=== PATIENT | male | born 1995 | race Two or more races ===

== ENCOUNTER 2020-08-21 19:51 | Emergency (ER) | payer MEDICAID, OTHER ==
[~2020-08-21] VITALS: Ht 170.2 cm; Wt 63.5 kg
[2020-08-21] MEDS ORDERED: PANTOPRAZOLE 40 MG/10 ML VIAL INJ IV ONE (20:15)
[2020-08-21] MEDS ORDERED: SODIUM CHLORIDE 0.9% 1,000 ML IV ONE (20:15)
[2020-08-21] MEDS ORDERED: cefTRIAXone 1GM/50ML D5W 50 ML IV ONE (20:30)
[2020-08-21 21:17] LABS: Basophils # (auto) 0 10 ^3/uL (0-0.2); Basophils % (auto) 0.3 % (0.0-2.0); Eosinophils # (auto) 0 10 ^3/uL (0-0.8); Eosinophils % (auto) 0.2 % (0.0-7.0); Hematocrit 47.2 % (41.0-53.0); Hemoglobin 16.1 g/dL (13.5-17.5); Lymphocytes # (auto) 1.1 10 ^3/uL (0.4-5.4); Lymphocytes % (auto) 7.2 % (10.0-50.0); Mean Corpuscular Hemoglobin 31.2 pg (28.0-32.0); Mean Corpuscular Hgb Conc. 34.2 g/dL (32.0-36.0); Mean Corpuscular Volume 91.2 fL (80.0-100.0); Monocytes # (auto) 0.9 10 ^3/uL (0-1.3); Neutrophils # (auto) 12.6 10 ^3/uL (1.6-8.6); Neutrophils % (auto) 86.3 % (37.0-80.0); Nucleated Red Blood Cells % 0.1 %; Platelet Count (auto) 242 10^3/uL (140-450); Red Blood Cells 5.17 10^6/uL (4.5-5.90); Red Cell Distribution Width 13.2 % (11.8-14.3); White Blood Cell 14.6 10^3/uL (4.4-10.8)
[2020-08-21 21:24] LABS: Albumin 3.9 g/dL (3.4-5.0); Calcium 8.2 mg/dL (8.5-10.1)
[2020-08-21 21:27] LABS: Lactic Acid w/Reflex 3.1 mmol/L (0.4-2.0)
[2020-08-21 21:28] LABS: Bilirubin, Total 0.4 mg/dL (0.2-1.0); Total Protein 7.8 g/dL (6.4-8.2)
[2020-08-21 21:48] LABS: INR 1.02 (0.9-1.15)
[2020-08-21 22:17] LABS: Salicylate < 1.7 mg/dL (2.8-20.0)
[2020-08-21 22:22] LABS: Acetaminophen < 2.0 ug/mL (10-30)
[2020-08-21 23:11] LABS: Urine Bacteria NONE SEEN /hpf (None Seen); Urine Blood 1+ /uL (Negative); Urine Mucus FEW (None Seen); Urine Specific Gravity 1.032 (1.001-1.035); Urine WBC 2 /hpf (0 - 3)
[2020-08-21] MEDS ORDERED: IOHEXOL 300 MG/ML 100ML BOTTLE IJ ONE (23:17)
[2020-08-21 23:25] LABS: Amphetamine Screen, Urine NEGATIVE (NEGATIVE); Barbiturate Scree,Urine NEGATIVE (NEGATIVE); Benzodiazephine Screen, Urine NEGATIVE (NEGATIVE); Cannabinoid Screen, Urine POSITIVE (NEGATIVE); Cocaine Screen, Urine NEGATIVE (NEGATIVE); Opiate Scree,Urine NEGATIVE (NEGATIVE); Phencyclidine Screen, Urine NEGATIVE (NEGATIVE)
[2020-08-21] MEDS ORDERED: LACTATED RINGER'S 1,000 ML IV ONE (23:30)
[2020-08-22] MEDS: POTASSIUM CHL 20MEQ/100ML 100 ML IV SCH ×2 (00:08→02:08)
[2020-08-22 02:43] LABS: BUN/Creatinine Ratio 5.3; Calcium 7.9 mg/dL (8.5-10.1); Potassium 4.1 mmol/L (3.5-5.1)
[2020-08-22] MEDS ORDERED: diphenhdrAMINE HCL 25 MG CAP PO ONE (05:15)
[2020-08-22] MEDS ORDERED: METOCLOPRAMIDE HCL 5MG/ml INJ 2ml VIAL IV ONE (05:45)
[2020-08-22] MEDS ORDERED: FAMOTIDINE (10MG/ML) 2ML VL IV ONE (05:45)
[2020-08-22 06:00] VITALS: BP 123/79
== END 2020-08-22 06:15 | disposition left against medical advice (07) ==
LOC: EDBD 19:51 → ER 19:54
DX: T40.2X1A Poisoning by other opioids, accidental (unintentional), initial encounter (principal); R11.10 Vomiting, unspecified; R11.2 Nausea with vomiting, unspecified; Z79.899 Other long term (current) drug therapy; Z20.822 Contact with and (suspected) exposure to COVID-19; Y92.89 Other specified places as the place of occurrence of the external cause
CPT/HCPCS: 36415; 74177; 80048; 80053; 80307; 80320; 80329; 81001; 83605; 83735; 85025; 85610; 86850; 86900; 86901; 87040; 87426; 96361; 96365; 96375; 99285; C9113; C9803; J0696; J2765; J3480; J3490; Q9967; U0003